=== PATIENT | female | born 1985 | race Two or more races ===

== ENCOUNTER 2020-02-26 06:05 | Emergency (ER) | payer MEDICAID ==
--- NOTE | 2020-02-26 09:16 | ER Document Report ---
Entered by KENYA SABILLON SCRIBE 02/26/20 0828 Acting as scribe for:ANABEL WAYNE MD ED General - General Chief Complaint: Sore Throat Stated Complaint: SORE THROAT, FEVER, CHILLS Time Seen by Provider: 02/26/20 08:15 Mode of Arrival: Ambulatory Information source: Patient Notes: This 34-year-old female patient presents to the emergency department today with complaints of a sore throat which began yesterday with associated chills and a fever last night. Patient states her temperature got as high as 102.2 yesterday evening. Patient states it hurts to swallow. 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 Patient denies cough or any known sick contacts. - Related Data Allergies/Adverse Reactions: IVP contrast Allergy (Uncoded 02/26/20 08:37) Past Medical History - General Information source: Patient - Social History Smoking Status: Never Smoker Cigarette use (# per day): No Frequency of alcohol use: None Drug Abuse: None Occupation: Nurse at [employer] Lives with: Family Family History: Reviewed & Not Pertinent Endocrine Medical History: Reports: Hx Hypothyroidism Past Surgical History: Reports: Hx Cholecystectomy, Hx Tubal Ligation Review of Systems - Review of Systems Constitutional: See HPI, Fever EENT: See HPI, Throat pain Cardiovascular: No symptoms reported Respiratory: denies: Cough Gastrointestinal: No symptoms reported Genitourinary: No symptoms reported Female Genitourinary: No symptoms reported Musculoskeletal: No symptoms reported Skin: No symptoms reported Hematologic/Lymphatic: No symptoms reported Neurological/Psychological: No symptoms reported -: Yes All other systems reviewed and negative Physical Exam - Vital signs Vitals: Temp Pulse Resp BP Pulse Ox 97.9 F 58 L 14 150/86 H 100 02/26/20 06:28 02/26/20 06:28 02/26/20 06:28 02/26/20 06:28 02/26/20 06:28 - Notes Notes: Physical Exam: General: Alert, appears well. HEENT: Normocephalic. Atraumatic. PERRL. Extraocular movements intact. Posterior oropharynx erythema without exudate, airway is patent. Mild tonsillar swelling Right > Left. No uvula edema, uvula is midline. Upper neck glands are tender w ith palpation. TMs are clear and non-bulging bilaterally. Neck: Supple. Non-tender. Respiratory: No respiratory distress. Clear and equal breath sounds bilaterally. Cardiovascular: Regular rate and rhythm. Abdominal: Obese. Non-tender. No distension. Normal Bowel Sounds. Back: No gross abnormalities. Extremities: Moves all four extremities. Upper extremities: Normal inspection. Normal ROM. Lower extremities: Normal inspection. No edema. Normal ROM. Neurological: Normal cognition. AAOx4. Normal speech. Psychological: Normal affect. Normal Mood. Skin: Warm. Dry. Normal color. Course - Re-evaluation Re-evalutation: 02/26/20 10:27 Rapid strep was negative. CBC and Chem-12 were unremarkable. CRP is 42.4 with normal range is less than 5. 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 We will put the patient on prednisone for the inflammatory process in her throat, and she understands if the COVID test comes back negative she is to stop taking the prednisone. 02/26/20 10:33 The patient was evaluated during the global COVID-19 pandemic and that diagnosis was suspected/considered upon their initial presentation. Their evaluation, treatment and testing was consistent with current guidelines for patients who present with complaints or symptoms that may be related to COVID-19. - Vital Signs Vital signs: Temp Pulse Resp BP Pulse Ox 97.9 F 65 18 129/80 H 100 02/26/20 10:29 02/26/20 10:29 02/26/20 10:29 02/26/20 10:29 02/26/20 10:29 - Laboratory Result Diagrams: 02/26/20 09:18 02/26/20 09:18 Laboratory results interpreted by me: 02/26/20 02/26/20 09:18 09:18 RDW 14.2 H C-Reactive Protein 42.4 H Discharge - Discharge Clinical Impression: Encounter for screening laboratory testing for COVID-19 virus Acute tonsillitis Qualifiers: Pharyngitis/tonsillitis etiology: unspecified etiology Qualified Code(s): J03.90 - Acute tonsillitis, unspecified Condition: Stable Disposition: HOME, SELF-CARE Instructions: COVID-19 Guidance for Persons Under Investigation Additional Instructions: Tonsillitis Tonsillitis is infection of the tonsils. Symptoms include sore throat, difficulty swallowing, fever and aches, and tender lumps under the angle of the jaw. Tonsillitis can be caused by bacteria or viruses. Viral tonsillitis must get better on its own. Antibiotics don't help. The doctor may test for mononucleosis if symptoms last many days. We can only treat the symptoms. Bacterial tonsillitis is treated with antibiotics. It may take a few days before improvement occurs. It's important to take all the antibiotics. Take acetaminophen or ibuprofen for pain and fever. Sip frequent clear liquids, or use popsicles or ice chips. Anesthetic sprays or lozenges may help a little (the pain of tonsillitis is deep, and isn't helped much by numbing the surface). Make sure the air in the room is not too dry. Avoid using decongestants or antihistamines. Tonsillectomy may be necessary if you have several episodes of tonsillitis within a couple of years, or if there are complications from your tonsillitis. It's usually not needed. Call the doctor if there is no improvement in two days, or if you have difficulty breathing, increasing throat pain, high fever, rash, or frequent vomiting. Start the prednisone as prescribed tomorrow. You had today's dose here in the emergency room. Take Tylenol and ibuprofen for fever as needed. Drink plenty of fluids and get plenty of rest. Call back Monday afternoon and ask them to give me your name and phone number and I will check on the COVID test. If the COVID test is positive, you should stop taking the prednisone. For now you should self isolate at home. RETURN TO THE EMERGENCY ROOM IF ANY NEW OR WORSENING SYMPTOMS. Prescriptions: Prednisone [Deltasone 10 mg Tablet] 10 mg PO ASDIR PRN #21 tablet PRN Reason: Forms: Return to Work I personally performed the services described in the documentation, reviewed and edited the documentation which was dictated to the scribe in my presence, and it accurately records my words and actions.
[2020-02-26 09:39] LABS: ABSOLUTE BASOPHILS # (AUTO) 0.1 10^3/uL (0.0-0.2); ABSOLUTE EOSINOPHILS # (AUTO) 0.1 10^3/uL (0.0-0.6); ABSOLUTE LYMPHOCYTES (AUTO) 1.9 10^3/uL (0.5-4.7); ABSOLUTE MONOCYTES (AUTO) 0.7 10^3/uL (0.1-1.4); BASOPHILS % (AUTO) 0.6 % (0-2); HEMATOCRIT 38.2 % (36.0-47.0); HEMOGLOBIN 12.8 g/dL (12.0-15.5); LYMPHOCYTES % (AUTO) 19.7 % (13-45); MEAN CORPUSCULAR HEMOGLOBIN 28.9 pg (27.0-33.4); MEAN CORPUSCULAR HGB CONC 33.5 g/dL (32.0-36.0); MEAN CORPUSCULAR VOLUME 86 fl (80-97); MONOCYTES % (AUTO) 6.8 % (3-13); PLATELET COUNT 192 10^3/uL (150-450); RED BLOOD COUNT 4.43 10^6/uL (3.72-5.28); RED CELL DISTRIBUTION WIDTH 14.2 % (11.5-14.0); SEGMENTED NEUTROPHILS % (AUTO) 71.9 % (42-78); TOTAL CELLS COUNTED % (AUTO) 100 %; WHITE BLOOD COUNT 9.7 10^3/uL (4.0-10.5)
[2020-02-26 09:55] LABS: ALKALINE PHOSPHATASE 80 U/L (38-126); ANION GAP 7 (5-19); ASPARTATE AMINO TRANSFERASE 28 U/L (14-36); BILIRUBIN,TOTAL 0.6 mg/dL (0.2-1.3); BLOOD UREA NITROGEN 12 mg/dL (7-20); C-REACTIVE PROTEIN 42.4 mg/L (<10.0); CALCIUM 9.5 mg/dL (8.4-10.2); CARBON DIOXIDE 28 mmol/L (22-30); CHLORIDE 104 mmol/L (98-107); GLUCOSE 102 mg/dL (75-110); POTASSIUM 4.1 mmol/L (3.6-5.0); TOTAL PROTEIN 6.8 g/dL (6.3-8.2)
[2020-02-26] MEDS ORDERED: PREDNISONE 20 MG TABLET PO ONE (10:29)
[2020-02-26 10:30] VITALS: BP 129/80
== END 2020-02-26 11:09 | disposition home or self-care (01) ==
LOC: ER 06:05
DX: Z20.828 Contact with and (suspected) exposure to other viral communicable diseases (principal); J03.90 Acute tonsillitis, unspecified; R50.9 Fever, unspecified
CPT/HCPCS: 99283; 36415; 87070; 87880; 85025; 87635; 86140; 87077; 80053; J7512; C9803

== ENCOUNTER 2020-07-01 12:39 | Emergency (ER) | payer MEDICAID ==
--- NOTE | 2020-07-01 13:37 | ER Document Report ---
ED General - General Chief Complaint: Fever Stated Complaint: FEVER,HEADACHE Time Seen by Provider: 07/01/20 13:07 - HPI Notes: Patient is a 35-year-old female who presents to the emergency department for evaluation of fever, headache, body aches, vomiting. She states her daughter was seen here recently and had a Covid test which was found to be negative. She has a headache is primarily frontal. She denies any anosmia or difficulty with sense of taste. She is not coughing or short of breath. She said nausea with one episode of nonbloody, nonbilious emesis. Normal bowel movements. She complains of body aches, denies any posterior neck pain or stiffness. She denies any sore throat. - Related Data Allergies/Adverse Reactions: IVP contrast Allergy (Uncoded 07/01/20 13:20) Home Medications: None Past Medical History - General Information source: Patient - Social History Smoking Status: Former Smoker Drug Abuse: None Family History: Reviewed & Not Pertinent Endocrine Medical History: Reports: Hx Hypothyroidism Past Surgical History: Reports: Hx Cholecystectomy, Hx Tubal Ligation Review of Systems - Review of Systems Constitutional: See HPI EENT: No symptoms reported Cardiovascular: No symptoms reported Respiratory: No symptoms reported Gastrointestinal: See HPI Genitourinary: No symptoms reported Musculoskeletal: See HPI Skin: No symptoms reported Neurological/Psychological: No symptoms reported Physical Exam - Vital signs Vitals: Temp Pulse Resp BP Pulse Ox 99.1 F 91 16 134/95 H 97 07/01/20 12:44 07/01/20 12:44 07/01/20 12:44 07/01/20 12:44 07/01/20 12:44 - Notes Notes: Vital signs reviewed, please refer to chart. Head is normocephalic, atraumatic. Pupils equal round, reactive to light. Oral mucosa is moist. Pharynx is without erythema or exudate, no tenderness anterior cervical adenopathy noted. Neck is supple without meningismus. Heart is regular rate and rhythm. Lungs are clear to auscultation bilaterally. Abdomen is soft, nontender, normoactive bowel sounds throughout. Extremities without cyanosis, clubbing. Posterior calves are nontender. Peripheral pulses are equal. Skin is warm and dry. Patient is awake, alert, neurological exam is nonfocal. Course - Re-evaluation Re-evalutation: 07/01/20 13:36 Patient presents emergency department for evaluation. She complains of body aches, fever, headache, vomiting. She has no meningeal signs. She does not desire Covid test, this was ordered. She is told this will take 36 to 48 hours to result. She voiced understanding. Otherwise with her body aches and vomiting I will get head and test for influenza. She is currently stable, we will continue to monitor. 07/01/20 15:07 Influenza negative, Covid testing pending. Patient will be discharged. Symptomatic medications as needed. Follow-up with primary care next week, return to the ED with worsening. - Vital Signs Vital signs: Temp Pulse Resp BP Pulse Ox 99.1 F 91 16 134/95 H 97 07/01/20 13:10 07/01/20 12:44 07/01/20 12:44 07/01/20 12:44 07/01/20 12:44 Discharge - Discharge Clinical Impression: Person under investigation for COVID-19, Viral illness Condition: Stable Disposition: HOME, SELF-CARE Instructions: COVID-19 Guidance for Persons Under Investigation, Viral Syndrome ([facility]) Additional Instructions: Quarantine at home. Your test results should come in in the next 36 to 72 hours. Wzce-com-[id number] medications as needed for symptom management. Follow- up with your primary care provider next week. Return the emergency department for worsening or new concerning symptoms of any sort.
[2020-07-01 14:56] LABS: A TYPE INFLUENZA AG NEGATIVE (NEGATIVE); B INFLUENZA AG NEGATIVE (NEGATIVE)
[2020-07-01 15:19] VITALS: BP 120/70
== END 2020-07-01 15:18 | disposition home or self-care (01) ==
LOC: ER 12:39
DX: U07.1 COVID-19 (principal); R50.9 Fever, unspecified; R51.9 Headache, unspecified; R11.2 Nausea with vomiting, unspecified; Z91.041 Radiographic dye allergy status
CPT/HCPCS: 99282; 87635; 87804; C9803

== ENCOUNTER 2020-07-22 14:15 | Emergency (ER) | payer SELFPAY ==
[2020-07-22 14:20] VITALS: BP 133/80
--- NOTE | 2020-07-22 14:42 | ER Document Report ---
ED General - General Chief Complaint: Fever Stated Complaint: FEVER Mode of Arrival: Ambulatory Information source: Patient Notes: 35-year-old female known Covid positive presents with concern for painful lymph node. Patient reports that she was tested on July 01 and has had persistent fever since that time. She reports that she noticed left-sided neck pain 2 days ago. She reports recent fever of 102 which she took Tylenol for. She is afebrile here. She does complain of nausea sob with exercertion and cough . TRAVEL OUTSIDE OF THE [place] IN LAST 30 DAYS: No - HPI Onset: Other Onset/Duration: Persistent Quality of pain: Achy Severity: Moderate Pain Level: 2 Associated symptoms: Body/muscle aches, Fever, Headache, Nausea, Shortness of breath Exacerbated by: Movement Relieved by: Remaining still Similar symptoms previously: Yes Recently seen / treated by doctor: Yes - Related Data Allergies/Adverse Reactions: IVP contrast Allergy (Uncoded 07/01/20 13:20) Past Medical History - General Information source: Patient - Social History Smoking Status: Never Smoker Cigarette use (# per day): No Chew tobacco use (# tins/day): No Smoking Education Provided: No Frequency of alcohol use: Occasional Drug Abuse: None Lives with: Family Family History: Reviewed & Not Pertinent Patient has suicidal ideation: No Patient has homicidal ideation: No - Medical History Medical History: Negative Endocrine Medical History: Reports: Hx Hypothyroidism Past Surgical History: Reports: Hx Cholecystectomy, Hx Tubal Ligation Review of Systems - Review of Systems Constitutional: Fever, Malaise, Weakness EENT: Nose congestion Respiratory: Cough, Short of breath Gastrointestinal: Nausea Genitourinary: No symptoms reported Female Genitourinary: No symptoms reported Musculoskeletal: No symptoms reported Skin: No symptoms reported Hematologic/Lymphatic: No symptoms reported Neurological/Psychological: denies: Depression -: Yes All other systems reviewed and negative Physical Exam - Vital signs Vitals: Temp Pulse Resp BP Pulse Ox 98.0 F 64 20 133/80 H 97 07/22/20 14:16 07/22/20 14:16 07/22/20 14:16 07/22/20 14:16 07/22/20 14:16 - Notes Notes: PHYSICAL EXAMINATION: GENERAL: Well-appearing, well-nourished and in no acute distress. HEAD: Atraumatic, normocephalic. EYES: Pupils equal round and reactive to light, extraocular movements intact, conjunctiva are normal. ENT: Nares patent, oropharynx clear without exudates. Moist mucous membranes. NECK: Normal range of motion, supple with left sided lymphadenopathy. LUNGS: Breath sounds clear to auscultation bilaterally and equal. No wheezes rales or rhonchi. HEART: Regular rate and rhythm without murmurs ABDOMEN: Soft, nontender, nondistended abdomen. No guarding, no rebound. No masses appreciated. Female : deferred Musculoskeletal: Normal range of motion, no pitting or edema. No cyanosis. NEUROLOGICAL: Cranial nerves grossly intact. Normal speech, normal gait. Normal sensory, motor exams PSYCH: Normal mood, normal affect. SKIN: Warm, Dry, normal turgor, no rashes or lesions noted. Course - Re-evaluation Re-evalutation: 07/22/20 16:00 Patient presents with lymphadenopathy. Lung sounds clear. Patient reports persistent fevers since being tested positive for Covid on July 01. Vital signs reviewed and within normal limits. Patient does not appear toxic or dehydrated. She is in no acute distress. Patient provided a prescription for Zofran, albuterol. Patient was evaluated and treated as appropriate for the patient's presenting symptoms and complaint, with consideration of any critical or life threatening conditions that may be associated with their obtained history and exam as noted above. All results were discussed with patient and... Patient provided the opportunity to ask questions, and express concerns. Patient was educated on treatments based on their presumed diagnosis as noted above. At this time we will discharge the patient with return precautions and follow-up recommendations. Verbal discharge instructions given a the bedside. Medication warnings reviewed. Patient is in agreement with this plan and has verbalized understanding of return precautions. After careful consideration I feel that that patient can be safely discharged from the emergency department, they were advised to followup with a primary care physician in 2-3 days. Dictation on this chart was performed using voice recognition software and may result in unintended grammatical, spelling, syntax or errors. - Vital Signs Vital signs: Temp Pulse Resp BP Pulse Ox 98.0 F 64 20 133/80 H 97 07/22/20 14:16 07/22/20 14:16 07/22/20 14:16 07/22/20 14:16 07/22/20 14:16 - Laboratory Results Critical Laboratory Results Reviewed: No Critical Results - Radiology Results Critical Radiology Results Reviewed: No Critical Results Discharge - Discharge Clinical Impression: Lymphadenopathy, COVID-19 Condition: Good Disposition: HOME, SELF-CARE Instructions: COVID-19 Guidance for Persons Under Investigation, Fever ([facility]), Viral Syndrome ([facility]) Prescriptions: Albuterol Sulfate [Proair HFA Inhalation Aerosol 8.5 gm MDI] 2 puff IH Q4H PRN #1 mdi PRN Reason: Ondansetron [Zofran Odt 4 mg Tablet] 1 - 2 tab PO Q4H PRN #15 tab.rapdis PRN Reason: For Nausea/Vomiting Forms: Parent Work Note
== END 2020-07-22 14:55 | disposition home or self-care (01) ==
LOC: ER 14:15
DX: U07.1 COVID-19 (principal); R59.0 Localized enlarged lymph nodes; R05 Cough; R06.02 Shortness of breath; M79.10 Myalgia, unspecified site; R51.9 Headache, unspecified; R11.0 Nausea; R53.81 Other malaise; R53.1 Weakness; Z91.041 Radiographic dye allergy status
CPT/HCPCS: 99283

== ENCOUNTER 2020-08-03 17:36 | Emergency (ER) | payer SELFPAY ==
--- NOTE | 2020-08-03 18:28 | ER Document Report ---
ED Medical Screen (RME) - General Chief Complaint: Fever Stated Complaint: FEVER,LUMP IN NECK TRAVEL OUTSIDE OF THE [place] IN LAST 30 DAYS: No - HPI Notes: 08/03/20 21:56 Rapid Medical Exam HPI: Patient is a 35-year-old female that presents to the ER complaining of ongoing COVID-19 fevers as well as a lump on the left side of her neck. Temps up to 102. She denies shortness of breath, chest pain, confusion, dizziness. Patient was seen in the ED few days ago for the same. She just wants to be rechecked. Physical Exam: GENERAL: Well-appearing, well-nourished and in no acute distress. HEAD: Atraumatic, normocephalic. ENT: Moist mucous membranes. RESP: Respirations even and unlabored CV- Regular rate. NEURO: No focal neurological deficits. Moves all extremities spontaneously and on command. My involvement in this patients care was limited to a rapid initial assessment. A comprehensive ED assessment and evaluation of the patient, analysis of test results, treatment, and completion of the medical decision making process will be performed by other ER providers. - Related Data Allergies/Adverse Reactions: IVP contrast Allergy (Uncoded 07/01/20 13:20) Past Medical History Endocrine Medical History: Reports: Hx Hypothyroidism Past Surgical History: Reports: Hx Cholecystectomy, Hx Tubal Ligation Physical Exam - Vital signs Vitals: Temp Pulse Resp BP Pulse Ox 98.0 F 64 20 140/95 H 97 08/03/20 18:09 08/03/20 18:09 08/03/20 18:09 08/03/20 18:09 08/03/20 18:09 Course - Vital Signs Vital signs: Temp Pulse Resp BP Pulse Ox 98.7 F 88 16 120/74 98 08/03/20 19:41 08/03/20 19:41 08/03/20 19:41 08/03/20 19:41 08/03/20 19:41 Doctor's Discharge - Discharge Clinical Impression: COVID-19, Supraclavicular lymphadenopathy Condition: Stable Disposition: HOME, SELF-CARE Additional Instructions: Make sure you keep your appointment with your primary care doctor to have your supraclavicular lymph node ultrasound and further evaluated to make sure this is not related to any type of malignancy. Continue to self quarantine and take Tylenol for fevers. Return to the ER if your condition worsens or if you desire further work-up of your enlarged lymph node.
--- NOTE | 2020-08-03 18:44 | ER Document Report ---
ED General - General Chief Complaint: Fever Stated Complaint: FEVER,LUMP IN NECK TRAVEL OUTSIDE OF THE [place] IN LAST 30 DAYS: No - HPI Notes: Chief Complaint: COVID-19, lymphadenopathy Historian: History obtained from patient HPI: This is a 35-year-old female presents to the ER complaining of ongoing fevers associated with COVID-19 x1 month as well as a supra clavicular lymph node. She was seen this past week in the ER for the same complaint. Patient says she returned today because her work needed documentation that she is continuing to manage and get in checkups for her condition. The lymph node did not show up until after she was diagnosed with COVID-19. She reports fevers up to 102. Denies chest pain or shortness of breath. She has no history of cancers. Denies weight loss. Patient has follow-up with her PCP on Monday for an ultrasound of her thyroid and the lymph node. She is declining any work-up in the ED and only wants documentation that she was seen today. ROS: Constitutional: Fevers up to 102 HEENT: no SWANSON, sore throat, or vision changes. CV: no chest pain or palpitations. Resp: no cough or SOB. GI: no abdominal pain, or n/v/d. : no dysuria, hematuria, or incont. MSK: no back pain, no joint swelling/redness. Skin: Left supraclavicular lymph node tender Neuro: no seizures, weakness, numbness, or confusion. Hematological: no ecchymosis or easy bleeding. Endocrine: no polyuria/polydipsia, no heat/cold intolerance. Psych: no SI/HI, AH/VH or memory loss. PMHx: Reviewed and agree as charted by RN. PSHx: Reviewed and agree as charted by RN. SOCHx: Reviewed and agree as charted by RN. FHX: No significant familial comorbid conditions directly related to patient complaint Current Medications: Reviewed and agree with the patient medications as charted by the RN. Allergies: Reviewed and agree with the listed allergies as charted by the RN Physical Exam: Vitals: Reviewed in chart as documented by RN. General: Alert and in NAD. Head: Normocephalic; atraumatic Eyes: PERRLA, Conjunctivae clear sclerae non-icteric bilat ENT: no soft palate swelling or uvular deviation Neck: Trachea midline, 3 cm left supraclavicular lymphadenopathy tender to palpation. No erythema or fluctuance. Firm. Does not feel movable. CV: RRR, no M/R/G; symmetric distal pulses Resp: respirations even and unlabored, CTA bilat. GI: abd soft and nondistended. NTTP. normal BS. no masses/HSM. no CVAT bilat MSK: FROM of all extremities. No midline CTL spine tenderness/deformity Skin: warm, moist, good turgor. no rash/lesions Neuro: Alert and oriented X 4. following CN 2-12 intact. no unilateral weakness/numbness Psych: No SI/HI or AH/VH. Medical Decision-Making: Differential includes viral syndrome, COVID-19, fevers, lymphadenopathy, lymphadenitis, infected lymph node malignancy, lymphoma, leukemia, thyroid cancer, reactive lymph node etc. HandI offered work-up and imaging the patient regarding her enlarged supraclavicular lymph node. We had an extensive discussion regarding risks associated with supraclavicular lymph nodes including cancers or malignancies. She has very close follow-up with her primary care doctor in [place] and is planning to have an ultrasound of her thyroid and the lymph node. She fully plans on having this further evaluated and is comfortable with her plan. offered po abx for possible adenitis but pt also declines. All she wants is documentation for her work that she was seen for these conditions. Encouraged patient to return at any time to have further work-up. I suspect her lymph node may be related just to COVID-19 and fevers. Though some viruses are known to correlate with malignancies and she may need a fine-needle biopsy or further imaging and testing. Patient verbalizes understanding and agrees with plan of care. She is well-appearing and nontoxic in the ED vital signs stable. Patient is ambulatory and in no acute distress - Related Data Allergies/Adverse Reactions: IVP contrast Allergy (Uncoded 07/01/20 13:20) Past Medical History - Social History Smoking Status: Unknown if Ever Smoked Family History: Reviewed & Not Pertinent Endocrine Medical History: Reports: Hx Hypothyroidism Past Surgical History: Reports: Hx Cholecystectomy, Hx Tubal Ligation Physical Exam - Vital signs Vitals: Temp Pulse Resp BP Pulse Ox 98.0 F 64 20 140/95 H 97 08/03/20 18:09 08/03/20 18:09 08/03/20 18:09 08/03/20 18:09 08/03/20 18:09 Course - Vital Signs Vital signs: Temp Pulse Resp BP Pulse Ox 98.0 F 64 20 140/95 H 97 08/03/20 18:09 08/03/20 18:09 08/03/20 18:09 08/03/20 18:08/03/20 18:09 - Laboratory Results Critical Laboratory Results Reviewed: No Critical Results - Radiology Results Critical Radiology Results Reviewed: No Critical Results Discharge - Discharge Clinical Impression: COVID-19, Supraclavicular lymphadenopathy Condition: Stable Disposition: HOME, SELF-CARE Additional Instructions: Make sure you keep your appointment with your primary care doctor to have your supraclavicular lymph node ultrasound and further evaluated to make sure this is not related to any type of malignancy. Continue to self quarantine and take Tylenol for fevers. Return to the ER if your condition worsens or if you desire further work-up of your enlarged lymph node.
[2020-08-03 19:42] VITALS: BP 120/74
== END 2020-08-03 19:41 | disposition home or self-care (01) ==
LOC: ER 17:36
DX: U07.1 COVID-19 (principal); R50.9 Fever, unspecified; R59.0 Localized enlarged lymph nodes; Z91.041 Radiographic dye allergy status
CPT/HCPCS: 99282